=== PATIENT | female | born 1980 | race Caucasian/White ===

== ENCOUNTER 2018-03-30 15:45 | Inpatient (IN) | payer MEDICAID, OTHER ==
[~2018-03-30] VITALS: Ht 160 cm; Wt 70.4 kg
[2018-03-30 15:54] VITALS: BP 138/76; PULSE 72; RESP 18; TEMP 99.2; O2SAT 100
--- NOTE | 2018-03-30 16:24 | PD ---
HPI Chief Complaint: Psychiatric Symptoms Time Seen by Provider: 15:59 Travel History International Travel<30 days: No Contact w/Intl Traveler<30days: No Traveled to known affect area: No History of Present Illness HPI 37-year-old female that presents to the ED for evaluation of Tania robles. Patient was Tania acted secondary to having bizarre behavior and behavioral issues. Patient apparently is suicidal. Per patient she is taking lithium for her bipolar disorder and believes that is the cause of the symptoms. She denies any chest pain or shortness of breath. Other medical issues. Per patient she has a history of hypertension but was secondary to medication she was taking. Per patient she follows closely with a psychiatrist who has been following her for a while and has been changing the medications multiple times with minimal success of symptoms improvement. Patient was Tania acted for her own safety. She denies any homicidal ideation but she states that she would like to try "marijuana". She denies any urinary or bowel movement issues. Symptoms appear to be ongoing for some time. No other medical issues at this time. Denies any alcohol abuse. PFSH Past Medical History ?: Not Past Surgical History Hysterectomy: No Social History Alcohol Use: No Tobacco Use: No Substance Use: No Allergies-Medications (Allergen,Severity, Reaction): Coded Allergies: quetiapine (Verified Allergy, Severe, HYPERTENSION/TACHYCARDIA, 03/30/18) Latex, Natural Rubber (Verified Allergy, Intermediate, ITCH, 03/30/18) Sulfa (Sulfonamide Antibiotics) (Verified Allergy, Intermediate, HIVES, 03/30/18) alprazolam (Verified Allergy, Intermediate, RASH, 03/30/18) guaifenesin (Verified Allergy, Intermediate, RASH, 03/30/18) lithium (Verified Allergy, Intermediate, BEHAVIORAL CHANGES, 03/30/18) Review of Systems Except as stated in HPI: all other systems reviewed are Neg Physical Exam Narrative GENERAL: SKIN: Warm and dry. HEAD: Atraumatic. Normocephalic. EYES: Pupils equal and round. No scleral icterus. No injection or drainage. ENT: No nasal bleeding or discharge. Mucous membranes pink and moist. Tongue is midline. No uvula deviation. NECK: Trachea midline. No JVD. CARDIOVASCULAR: Regular rate and rhythm. No murmurs, S3, S4. RESPIRATORY: No accessory muscle use. Clear to auscultation. Breath sounds equal bilaterally. GASTROINTESTINAL: Abdomen soft, non-tender, nondistended. Hepatic and splenic margins not palpable. MUSCULOSKELETAL: Extremities without clubbing, cyanosis, or edema. No obvious deformities. Full range of motion of the upper and lower extremities bilaterally. 2+ pulses bilaterally. NEUROLOGICAL: Awake and alert. No obvious cranial nerve deficits. Motor grossly within normal limits. Five out of 5 muscle strength in the arms and legs. Normal speech. PSYCHIATRIC: Appropriate mood and affect; insight and judgment normal. Data Data Last Documented VS Vital Signs Date Time Temp Pulse Resp B/P (MAP) Pulse Ox O2 Delivery O2 Flow Rate FiO2 03/30/18 15:54 99.2 72 18 138/76 (96) 100 Orders Orders Complete Blood Count With Diff (03/30/18 15:59) Comprehensive Metabolic Panel (03/30/18 15:59) Thyroid Stimulating Hormone (03/30/18 15:59) Psych Screen (03/30/18 15:59) Drug Screen, Random Urine (03/30/18 15:59) Alcohol (Ethanol) (03/30/18 15:59) Salicylates (Aspirin) (03/30/18 15:59) Tylenol (Acetaminophen) (03/30/18 15:59) [place] (Li) (03/30/18 16:06) MDM Medical Decision Making Medical Screen Exam Complete: Yes Emergency Medical Condition: Yes Medical Record Reviewed: Yes Differential Diagnosis Depression versus suicidal ideation versus anxiety versus adjustment disorder versus mood disorder versus bipolar disorder versus schizophrenia versus paranoid disorder versus psychosis versus substance abuse versus alcohol abuse versus alcohol induced psychosis versus homicidality addition versus cutting versus personality disorder Narrative Course 37-year-old female that presents to the ED for evaluation of psychiatric illness. No significant medical distress. Labs were drawn. Patient was medically clear. Okay to be seen by psych. Mental health screening was discussed with the patient. Diagnosis Primary Impression: Bipolar 1 disorder Palomo Gauthier March 30, 2018 16:24
[2018-03-30 17:34] LABS: ALBUMIN 4.8 GM/DL (3.4-5.0); AST (GOT) 15 U/L (15-37); BICARBONATE 25.7 MEQ/L (21.0-32.0); BLOOD UREA NITROGEN 8 MG/DL (7-18); CALCIUM 10.2 MG/DL (8.5-10.1); CHLORIDE 104 MEQ/L (98-107); CREATININE 1.08 MG/DL (0.50-1.00); GLOMERULAR FILTRATION RATE 57 ML/MIN (>89); GLUCOSE,RANDOM 83 MG/DL (74-106); SODIUM (NA) 142 MEQ/L (136-145)
[2018-03-30 17:46] LABS: ALKALINE PHOSPHATASE 97 U/L (45-117); ALT (GPT) 22 U/L (10-53); TOTAL BILIRUBIN ADULT 0.6 MG/DL (0.2-1.0); TOTAL PROTEIN 8.7 GM/DL (6.4-8.2)
[2018-03-30 17:50] LABS: ACETAMINOPHEN LESS THAN 2.0 MCG/ML (10.0-30.0)
[2018-03-30 18:05] VITALS: BP 148/77; PULSE 78; RESP 18; O2SAT 100
[2018-03-30] MEDS ORDERED: DIAZ10 PO (18:27)
[2018-03-30] MEDS ORDERED: LAMO200T PO (18:38)
[2018-03-30] MEDS ORDERED: DIAZEPAM 10 MG TAB PO ONE (18:45)
[2018-03-30 19:13] LABS: AUTOMATED NEUTROPHIL # 7.1 TH/MM3 (1.8-7.7); BASOPHIL # 0.1 TH/MM3 (0-0.2); BASOPHIL % 1.1 % (0.0-2.0); EOSINOPHIL # 0.1 TH/MM3 (0-0.4); HEMATOCRIT 40.4 % (35.0-46.0); HEMOGLOBIN 13.6 GM/DL (11.6-15.3); LYMPH % 27.6 % (9.0-44.0); LYMPHOCYTE # 3.1 TH/MM3 (1.0-4.8); MEAN CELL VOLUME 87.5 FL (80.0-100.0); MEAN CORPUSCULAR HEMOGLOBIN 29.4 PG (27.0-34.0); MEAN CORPUSCULAR HGB CONC 33.6 % (32.0-36.0); MEAN PLATELET VOLUME 8.2 FL (7.0-11.0); MONOCYTE # 0.7 TH/MM3 (0-0.9); NEUT % 64.3 % (16.0-70.0); PLATELET COUNT 276 TH/MM3 (150-450); RED BLOOD COUNT 4.62 MIL/MM3 (4.00-5.30); RED CELL DISTRIBUTION WIDTH 12.9 % (11.6-17.2); WHITE BLOOD COUNT 11.1 TH/MM3 (4.0-11.0)
[2018-03-30 19:17] LABS: BILIRUBIN, URINE NEG (NEG); BLOOD, URINE SMALL (NEG); GLUCOSE,URINE NEG (NEG); KETONE, URINE NEG (NEG); NITRITE,URINE NEG (NEG); PH, URINE 6.5 (5.0-8.5); SQUAMOUS EPITHELIAL CELL URINE 6 /hpf (0-5); URINE COLOR LIGHT-YELLOW (YELLW/STRAW); URINE LEUKOCYTE ESTERASE NEG (NEG)
[2018-03-30 22:11] VITALS: BP 120/74; PULSE 97; RESP 18; TEMP 98.7; O2SAT 99
[2018-03-30] MEDS ORDERED: lamoTRIgine 100 MG TAB PO ONE (23:15)
[2018-03-31 02:14] VITALS: BP 111/69; PULSE 108; RESP 18; TEMP 98.7; O2SAT 98
[2018-03-31 06:25] VITALS: BP 125/69; PULSE 84; RESP 16; TEMP 98.3; O2SAT 98
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
[2018-03-31] MEDS: lamoTRIgine 100 MG TAB PO SCH ×2 (09:15→21:43)
[2018-03-31] MEDS ORDERED: MAGNESIUM HYDROXIDE SUSP 30 ML CUP PO PRN (09:15)
[2018-03-31] MEDS ORDERED: ALUMINUM/MAGNESIUM/SIMETH 30 ML CUP PO PRN (09:15)
[2018-03-31] MEDS ORDERED: NICOTINE 21 MG/24 HR PATCH T-DERMAL PRN (09:15)
[2018-03-31] MEDS: PARoxetine HCL 20 MG TAB PO SCH (09:47)
[2018-03-31 11:22] VITALS: BP 124/74; PULSE 85; RESP 16; TEMP 98.5; O2SAT 100
[2018-03-31] MEDS: DIAZEPAM 5 MG TAB PO PRN ×2 (11:59→20:04)
--- NOTE | 2018-03-31 14:20 | PD.PSY.CON ---
Provisional Diagnosis Admission Date March 31, 2018 at 09:05 [place]. 1. Bipolar disorder, presently depressed, severe without psychotic features [place] II. 1. Cluster B personality traits History of Present Illness Service Psychiatry Consult Requested By Psychiatry Reason for Consult Second opinion Primary Care Physician Unknown HPI Ms. Sandoval is a 37-year-old female with a reported history of bipolar disorder and anxiety who presents under a [place] act by her outpatient nurse practitioner Nirmala Espino alleging suicidal ideation. Reviewing our electronic medical record, it appears this is patient's first visit to [place]. Patient seen and examined in the J-[facility]. Chart reviewed. Case discussed with nursing staff. On my examination today, the patient complains of low mood, poor appetite, poor sleep and poor concentration for several weeks. She reports onset about 3-4 days prior to presentation of suicidal ideation with plan to hang herself and overdose. She did not make any acts in furtherance of this plan. She does not report any urge to hurt herself on the inpatient unit. She complains of intermittent irritability, more prominent before her menses. She complains of anxiety, often panicky, with associated agoraphobia. I can elicit no hypomanic or manic symptoms presently. She denies AVH and I can elicit no delusional material. Cluster B personality traits noted. Remainder of the psychiatric ROS is negative. No acute physical complaints. Patient is insisting on discharge from the emergency room this morning saying that she has to get home to take care of her children. Patient is a 37 years old woman, domiciled with her and 2 kids , unemployed, with self-reported psychiatric history of bipolar disorder, anxiety, depression, no previous psychiatric hospitalizations, no previous suicidal attempts, she is in Lamictal 200 mg twice daily, lutein 150 mg a.m. and 300 p.m, first time seeing in [place], medical history hypothyroidism, who was brought the ER on the [place] act initiated by her outpatient practitioner due to suicidal ideation. Patient was consulted to me for second opinion. The patient is found very distress, profusely crying, but at the same time with very labile affect and behaviorally dysregulated. She reports that she has been having suicidal ideation "because the lithium is not working to me, this lithium is making me suicidal". Patient states that she does not want to kill herself because she has 2 kids, but she wants to be stabilized. She denies visual and auditory hallucinations, she denies suicidal enemas ideation. The patient is oriented 3. She seems to be a little bit disorganized at times, but with redirection she can cooperate. Review of Systems Constitutional: DENIES: Diaphoretic episodes, Fatigue, Fever, Weight gain, Weight loss, Chills, Dizziness, Change in appetite, Night Sweats Endocrine: DENIES: Abnorml menstrual pattern, Heat/cold intolerance, Polydipsia , Polyuria, Polyphagia Eyes: DENIES: Blurred vision, Diplopia, Eye inflammation, Eye pain, Vision loss , Photosensitivity, Double Vision Ears, nose, mouth, throat: DENIES: Tinnitus, Hearing loss, Vertigo, Nasal discharge, Oral lesions, Throat pain, Hoarseness, Ear Pain, Running Nose, Epistaxis, Sinus Pain, Toothache, Odynophagia Respiratory: DENIES: Apneas, Cough, Snoring, Wheezing, Hemoptysis, Sputum production, Shortness of breath Cardiovascular: DENIES: Chest pain, Palpitations, Syncope, Dyspnea on Exertion , PND, Lower Extremity Edema, Orthopnea, Claudication Gastrointestinal: DENIES: Abdominal pain, Black stools, Bloody stools, Constipation, Diarrhea, Nausea, Vomiting, Difficulty Swallowing, Anorexia Genitourinary: DENIES: Abnormal vaginal bleeding, Dysmenorrhea, Dyspareunia, Sexual dysfunction, Urinary frequency, Urinary incontinence, Urgency, Hematuria , Dysuria, Nocturia, Vaginal discharge Musculoskeletal: DENIES: Joint pain, Muscle aches, Stiffness, Joint Swelling, Back pain, Neck pain Integumentary: DENIES: Abnormal pigmentation, Pruritus, Rash, Nail changes, Breast masses, Breast skin changes, Nipple discharge Hematologic/lymphatic: DENIES: Bruising, Lymphadenopathy Immunologic/allergic: DENIES: Eczema, Urticaria Neurologic: DENIES: Abnormal gait, Headache, Localized weakness, Paresthesias, Seizures, Speech Problems, Tremor, Poor Balance Psychiatric: COMPLAINS OF: Suicidal Ideation, DENIES: Anxiety, Confusion, Mood changes, Depression, Hallucinations, Agitation, Homicidal Ideation, Delusions Past Family Social History Coded Allergies: quetiapine (Verified Allergy, Severe, HYPERTENSION/TACHYCARDIA, 03/30/18) Latex, Natural Rubber (Verified Allergy, Intermediate, ITCH, 03/30/18) Sulfa (Sulfonamide Antibiotics) (Verified Allergy, Intermediate, HIVES, 03/30/18) alprazolam (Verified Allergy, Intermediate, RASH, 03/30/18) guaifenesin (Verified Allergy, Intermediate, RASH, 03/30/18) lithium (Verified Allergy, Intermediate, BEHAVIORAL CHANGES, 03/30/18) Reported Medications Lamotrigine (Lamotrigine) 200 Mg Tab, 200 MG PO BID for Control Seizures, #60 TAB 0 Refills 03/30/18 Diazepam (Valium) 10 Mg Tab, 10 MG PO BID Y for ANXIETY, TAB 0 Refills 03/30/18 Current Medications Medications (Trade) Dose Ordered Sig/[place] Route Start Time Stop Time Status Last Admin (LaMICtal) 200 mg BID PO 03/31/18 09:15 03/31/18 09:15 (Benadryl) 50 mg HS PRN PO 03/31/18 21:00 (Tylenol) 650 mg Q4H PRN PO 03/31/18 09:15 (Milk Of Magnesia Liq) 30 ml DAILY PRN PO 03/31/18 09:15 (Mag-Al Plus Susp Liq) 30 ml Q6H PRN PO 03/31/18 09:15 (Habitrol 21 Mg Patch.24 Hr) 1 patch DAILY PRN T-DERMAL 03/31/18 09:15 (Valium) 5 mg Q6H PRN PO 03/31/18 10:00 03/31/18 11:59 (Paxil) 20 mg DAILY PO 03/31/18 09:15 03/31/18 09:47 (Synthroid) 25 mcg DAILY@0600 PO 04/01/18 06:00 Family Psych History She reports that her father had a schizophrenia Social History Patient was born and raised in [place], she lives in [place] with her and 2 kids, she is unemployed, her highest level of education is ninth grade Patient's Strengths (min. 2) Family support, outpatient psychiatric Physical Exam Vital Signs Vital Signs Date Time Temp Pulse Resp B/P (MAP) Pulse Ox O2 Delivery O2 Flow Rate FiO2 03/31/18 11:22 98.5 85 16 124/74 (91) 100 03/31/18 06:25 Room Air Lab Results Test 03/30/18 16:10 03/30/18 16:20 03/30/18 18:45 Urine Color LIGHT-YELLOW Urine Turbidity CLEAR Urine pH 6.5 Urine Specific [place] 1.011 Urine Protein NEG mg/dL Urine Glucose (UA) NEG mg/dL Urine Ketones NEG mg/dL Urine Occult Blood SMALL Urine Nitrite NEG Urine Bilirubin NEG Urine Urobilinogen LESS THAN 2.0 MG/DL Urine Leukocyte Esterase NEG Urine RBC 1 /hpf Urine WBC LESS THAN 1 /hpf Urine Squamous Epithelial Cells 6 /hpf Microscopic Urinalysis Comment CULT NOT INDICATED Urine Opiates Screen NEG Urine Barbiturates Screen NEG Urine Amphetamines Screen NEG Urine Benzodiazepines Screen NEG Urine Cocaine Screen NEG Urine Cannabinoids Screen NEG Blood Urea Nitrogen 8 MG/DL Creatinine 1.08 MG/DL Random Glucose 83 MG/DL Total Protein 8.7 GM/DL Albumin 4.8 GM/DL Calcium Level 10.2 MG/DL Alkaline Phosphatase 97 U/L Aspartate Amino Transf (AST/SGOT) 15 U/L Alanine Aminotransferase (ALT/SGPT) 22 U/L Total Bilirubin 0.6 MG/DL Sodium Level 142 MEQ/L Potassium Level 3.7 MEQ/L Chloride Level 104 MEQ/L Carbon Dioxide Level 25.7 MEQ/L Anion Gap 12 MEQ/L Estimat Glomerular Filtration Rate 57 ML/MIN Thyroid Stimulating Hormone 3rd Gen 2.770 uIU/ML Salicylates Level LESS THAN 1.7 MG/DL Acetaminophen Level LESS THAN 2.0 MCG/ML [place] Level 0.2 MEQ/L Ethyl Alcohol Level LESS THAN 3 MG/DL White Blood Count 11.1 TH/MM3 Red Blood Count 4.62 MIL/MM3 Hemoglobin 13.6 GM/DL Hematocrit 40.4 % Mean Corpuscular Volume 87.5 FL Mean Corpuscular Hemoglobin 29.4 PG Mean Corpuscular Hemoglobin Concent 33.6 % Red Cell Distribution Width 12.9 % Platelet Count 276 TH/MM3 Mean Platelet Volume 8.2 FL Neutrophils (%) (Auto) 64.3 % Lymphocytes (%) (Auto) 27.6 % Monocytes (%) (Auto) 6.0 % Eosinophils (%) (Auto) 1.0 % Basophils (%) (Auto) 1.1 % Neutrophils # (Auto) 7.1 TH/MM3 Lymphocytes # (Auto) 3.1 TH/MM3 Monocytes # (Auto) 0.7 TH/MM3 Eosinophils # (Auto) 0.1 TH/MM3 Basophils # (Auto) 0.1 TH/MM3 CBC Comment DIFF FINAL Differential Comment Mental Status Examination Appearance: Disheveled Consciousness: Alert Orientation: x4 Motor Activity: Normal gait Speech: Rapid Language: Adequate Fund of Knowledge: Adequate Attention and Concentration: Adequate Memory: Unremarkable Mood: Irritable, Manic Affect: Irritable Thought Process & Associations: Loose associations, Disorganized Thought Content: Appropriate Hallucination Type: None Delusion Type: None Suicidal Ideation: Yes Suicidal Plan: Yes Suicidal Intention: No Homicidal Ideation: No Homicidal Plan: No Homicidal Intention: No Insight: Poor Judgment: Poor Assessment & Plan Problem List: (1) Bipolar 1 disorder ICD Codes: F31.9 - Bipolar disorder, unspecified Status: Acute Assessment & Plan: I have seen and examined personally this patient. Review documentation. I have discussed this case personally with Dr. Daniel and ER staff. I agree and concur with Dr. Daniel assessment and plan. Consult appreciated. Assessment & Plan Estimated LOS: Braxton Rob MD March 31, 2018 14:20
[2018-03-31] MEDS: ACETAMINOPHEN 325 MG TAB PO PRN (20:12)
[2018-03-31] MEDS: diphenhydrAMINE HCL 50 MG CAP PO PRN (21:44)
[2018-04-01] MEDS: LEVOTHYROXINE SODIUM 25 MCG TAB PO SCH (05:35)
[2018-04-01 05:46] VITALS: BP 122/67; PULSE 99; RESP 16; TEMP 98.2; O2SAT 99
[2018-04-01 07:37] LABS: AUTOMATED NEUTROPHIL # 3.1 TH/MM3 (1.8-7.7); BASOPHIL # 0.1 TH/MM3 (0-0.2); BASOPHIL % 1.2 % (0.0-2.0); EOSINOPHIL # 0.2 TH/MM3 (0-0.4); EOSINOPHIL % 2.8 % (0.0-4.0); HEMATOCRIT 37.3 % (35.0-46.0); HEMOGLOBIN 12.7 GM/DL (11.6-15.3); LYMPHOCYTE # 2.3 TH/MM3 (1.0-4.8); MEAN CELL VOLUME 86.8 FL (80.0-100.0); MEAN CORPUSCULAR HEMOGLOBIN 29.6 PG (27.0-34.0); MEAN CORPUSCULAR HGB CONC 34.1 % (32.0-36.0); MEAN PLATELET VOLUME 7.9 FL (7.0-11.0); MONO % 7.3 % (0.0-8.0); MONOCYTE # 0.4 TH/MM3 (0-0.9); NEUT % 50.7 % (16.0-70.0); PLATELET COUNT 280 TH/MM3 (150-450); RED BLOOD COUNT 4.29 MIL/MM3 (4.00-5.30); RED CELL DISTRIBUTION WIDTH 13.1 % (11.6-17.2); WHITE BLOOD COUNT 6.1 TH/MM3 (4.0-11.0)
[2018-04-01 08:09] LABS: BICARBONATE 28.9 MEQ/L (21.0-32.0); BLOOD UREA NITROGEN 15 MG/DL (7-18); CALCIUM 9.3 MG/DL (8.5-10.1); CHLORIDE 105 MEQ/L (98-107); CHOLESTEROL 170 MG/DL (120-200); CHOLESTEROL/ HDL RATIO 3.04 RATIO; CREATININE 1.07 MG/DL (0.50-1.00); GLOMERULAR FILTRATION RATE 58 ML/MIN (>89); GLUCOSE,RANDOM 91 MG/DL (74-106); HDL CHOLESTEROL 55.8 MG/DL (40.0-60.0); LDL CHOLESTEROL 98 MG/DL (0-99); SODIUM (NA) 141 MEQ/L (136-145); TRIGLYCERIDES 83 MG/DL (42-150)
--- NOTE | 2018-04-01 08:13 | HHI.PYPN ---
Subjective Chief Complaint: Depression, SI Remarks Patient seen and adams with nurse Vyas, chart reviewed, patient complaint medications, patient discussed with nurse. Patient is somewhat intense intrusive with somewhat rapid pressured speech. She is very well continues suicidality, seems to acknowledge some stressful situations at home. She focused somewhat on the fact that she feels her Valium dose that she takes at home is half of what it should be. Though her urine toxicology drawn yesterday came back with a negative findings including benzodiazepines. We will continue her at the lower dose. It appears the petition supporting the [place] act has been misplaced I will redo the first opinion petition supporting [place] act. I do believe she meets criteria at this time. Otherwise continue treatment Review of Systems Except as stated in HPI: all other systems reviewed are Neg Mental Status Examination Appearance: Disheveled Consciousness: Alert Orientation: x4 Motor Activity: Normal gait Speech: Unremarkable Language: Adequate Fund of Knowledge: Adequate Attention and Concentration: Adequate Memory: Unremarkable (Grossly intact on clinical exam) Mood: Other (Depressed) Affect: Other (Restricted) Thought Process & Associations: Intact Thought Content: Appropriate Hallucination Type: None Delusion Type: None Suicidal Ideation: Yes Suicidal Plan: Yes Suicidal Intention: No (No reported urge to hurt self on an inpatient unit) Homicidal Ideation: No Homicidal Plan: No Homicidal Intention: No Insight: Poor Judgment: Poor Results Labs Test 04/01/18 07:14 White Blood Count 6.1 TH/MM3 Red Blood Count 4.29 MIL/MM3 Hemoglobin 12.7 GM/DL Hematocrit 37.3 % Mean Corpuscular Volume 86.8 FL Mean Corpuscular Hemoglobin 29.6 PG Mean Corpuscular Hemoglobin Concent 34.1 % Red Cell Distribution Width 13.1 % Platelet Count 280 TH/MM3 Mean Platelet Volume 7.9 FL Neutrophils (%) (Auto) 50.7 % Lymphocytes (%) (Auto) 38.0 % Monocytes (%) (Auto) 7.3 % Eosinophils (%) (Auto) 2.8 % Basophils (%) (Auto) 1.2 % Neutrophils # (Auto) 3.1 TH/MM3 Lymphocytes # (Auto) 2.3 TH/MM3 Monocytes # (Auto) 0.4 TH/MM3 Eosinophils # (Auto) 0.2 TH/MM3 Basophils # (Auto) 0.1 TH/MM3 CBC Comment DIFF FINAL Differential Comment Blood Urea Nitrogen 15 MG/DL Creatinine 1.07 MG/DL Random Glucose 91 MG/DL Calcium Level 9.3 MG/DL Sodium Level 141 MEQ/L Potassium Level 4.0 MEQ/L Chloride Level 105 MEQ/L Carbon Dioxide Level 28.9 MEQ/L Anion Gap 7 MEQ/L Estimat Glomerular Filtration Rate 58 ML/MIN Triglycerides Level 83 MG/DL Cholesterol Level 170 MG/DL LDL Cholesterol 98 MG/DL HDL Cholesterol 55.8 MG/DL Cholesterol/HDL Ratio 3.04 RATIO Vitals/IOs Vital Signs Date Time Temp Pulse Resp B/P (MAP) Pulse Ox O2 Delivery O2 Flow Rate FiO2 04/01/18 05:46 98.2 99 16 122/67 (85) 99 03/31/18 06:25 Room Air Assessment & Plan Problem List: (1) Bipolar disorder, current episode depressed, severe, without psychotic features ICD Codes: F31.4 - Bipolar disorder, current episode depressed, severe, without psychotic features Assessment & Plan Estimated LOS: days patient continues with vague suicidal ideation somewhat mixed in presentation. There is some drug-seeking behaviors related to her dose of benzodiazepine. I will do first opinion petition supporting [place] act and request second opinion Justification for Cont. Inpt. At this time patient would decompensate a place to a lower level of care Discharge Planning Probable return home with family Request HC Surrog/Guard Advoc?: No Daniel Gill MD April 01, 2018 08:13
[2018-04-01] MEDS: lamoTRIgine 100 MG TAB PO SCH ×2 (09:03→21:20)
[2018-04-01] MEDS: PARoxetine HCL 20 MG TAB PO SCH (09:04)
[2018-04-01 16:32] VITALS: BP 137/65; PULSE 80; RESP 17; TEMP 97.4; O2SAT 98
[2018-04-01 16:49] LABS: HEMOGLOBIN A1C 4.5 % (4.3-6.0)
[2018-04-01] MEDS: diphenhydrAMINE HCL 50 MG CAP PO PRN (21:21)
[2018-04-01] MEDS: ACETAMINOPHEN 325 MG TAB PO PRN (22:04)
[2018-04-02] MEDS: LEVOTHYROXINE SODIUM 25 MCG TAB PO SCH (05:37)
[2018-04-02 06:07] VITALS: BP 123/63; PULSE 96; RESP 16; TEMP 98.6; O2SAT 98
[2018-04-02] MEDS: lamoTRIgine 100 MG TAB PO SCH ×2 (09:29→21:14)
[2018-04-02] MEDS: PARoxetine HCL 20 MG TAB PO SCH (09:29)
[2018-04-02] MEDS: ACETAMINOPHEN 325 MG TAB PO PRN ×2 (09:31→19:22)
--- NOTE | 2018-04-02 11:23 | HHI.PYPN ---
Subjective Chief Complaint: Depression, SI Remarks Patient was seen and case discussed with nursing. Patient has been visiting with her . She notices her mood improving. She is anxious during the interview. Says she does not like people. Somewhat guarded. Sleep is variable. She denies suicidal or homicidal ideation intent or plan. Compliant with medications Mental Status Examination Appearance: Disheveled Consciousness: Alert Orientation: x4 Motor Activity: Normal gait Speech: Unremarkable Language: Adequate Fund of Knowledge: Adequate Attention and Concentration: Adequate Memory: Unremarkable (Grossly intact on clinical exam) Mood: Other (Depressed) Affect: Other (Restricted) Thought Process & Associations: Intact Thought Content: Appropriate Hallucination Type: None Delusion Type: None Suicidal Ideation: Yes Suicidal Plan: Yes Suicidal Intention: No (No reported urge to hurt self on an inpatient unit) Homicidal Ideation: No Homicidal Plan: No Homicidal Intention: No Insight: Poor Judgment: Poor Results Vitals/IOs Vital Signs Date Time Temp Pulse Resp B/P (MAP) Pulse Ox O2 Delivery O2 Flow Rate FiO2 04/02/18 06:07 98.6 96 16 123/63 (83) 98 03/31/18 06:25 Room Air Intake and Output 04/02/18 04/02/18 04/03/18 08:00 16:00 00:00 Intake Total 360 ml Balance 360 ml Assessment & Plan Problem List: (1) Bipolar disorder, current episode depressed, severe, without psychotic features ICD Codes: F31.4 - Bipolar disorder, current episode depressed, severe, without psychotic features Assessment & Plan Continue current treatment plan Justification for Cont. Inpt. Patient would decompensate in a less restrictive setting Request HC Surrog/Guard Advoc?: No Caesar Galvan DO April 02, 2018 11:23
[2018-04-02] MEDS: DIAZEPAM 5 MG TAB PO PRN (13:43)
[2018-04-02 16:37] VITALS: BP 121/61; PULSE 98; RESP 18; TEMP 98.6
[2018-04-02] MEDS: diphenhydrAMINE HCL 50 MG CAP PO PRN (21:14)
[2018-04-03] MEDS: LEVOTHYROXINE SODIUM 25 MCG TAB PO SCH (06:00)
[2018-04-03 06:03] VITALS: BP 113/70; PULSE 87; RESP 16; TEMP 98; O2SAT 98
[2018-04-03] MEDS: lamoTRIgine 100 MG TAB PO SCH ×2 (08:54→21:25)
[2018-04-03] MEDS: PARoxetine HCL 20 MG TAB PO SCH (08:54)
--- NOTE | 2018-04-03 11:23 | HHI.PYPN ---
Subjective Chief Complaint: Depression, SI Remarks Patient was seen and case discussed with nursing. Patient continues to improve. She is bright and cheerful during the interview. She is looking forward to a visit today from her . Describes her mood today is "good." 10 out of 10. She looks forward to seeing her kids and when she goes home. Compliant with medications and social on the unit Mental Status Examination Appearance: Disheveled Consciousness: Alert Orientation: x4 Motor Activity: Normal gait Speech: Unremarkable Language: Adequate Fund of Knowledge: Adequate Attention and Concentration: Adequate Memory: Unremarkable (Grossly intact on clinical exam) Mood: Appropriate Affect: Appropriate Thought Process & Associations: Intact Thought Content: Appropriate Hallucination Type: None Delusion Type: None Suicidal Ideation: No Suicidal Plan: Brittani Suicidal Intention: No (No reported urge to hurt self on an inpatient unit) Homicidal Ideation: No Homicidal Plan: No Homicidal Intention: No Insight: Poor Judgment: Poor Results Vitals/IOs Vital Signs Date Time Temp Pulse Resp B/P (MAP) Pulse Ox O2 Delivery O2 Flow Rate FiO2 04/03/18 06:03 98.0 87 16 113/70 (84) 98 03/31/18 06:25 Room Air Assessment & Plan Problem List: (1) Bipolar disorder, current episode depressed, severe, without psychotic features ICD Codes: F31.4 - Bipolar disorder, current episode depressed, severe, without psychotic features Assessment & Plan Continue current treatment plan Justification for Cont. Inpt. Patient would decompensate in a less restrictive setting Request HC Surrog/Guard Advoc?: No Caesar Galvan DO April 03, 2018 11:23
[2018-04-03 17:40] VITALS: BP 119/69; PULSE 88; RESP 17; TEMP 98.1; O2SAT 98
[2018-04-03] MEDS: DIAZEPAM 5 MG TAB PO PRN (18:02)
[2018-04-03] MEDS: diphenhydrAMINE HCL 50 MG CAP PO PRN (21:26)
[2018-04-04 06:21] VITALS: BP 119/68; PULSE 70; RESP 18; TEMP 97.8; O2SAT 99
[2018-04-04] MEDS: LEVOTHYROXINE SODIUM 25 MCG TAB PO SCH (06:33)
[2018-04-04] MEDS: lamoTRIgine 100 MG TAB PO SCH (08:35)
[2018-04-04] MEDS: PARoxetine HCL 20 MG TAB PO SCH (08:35)
[2018-04-04] MEDS ORDERED: PARO20TA2 PO (09:13)
[2018-04-04] MEDS ORDERED: LAMO200T PO (09:13)
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
[2018-04-04] MEDS ORDERED: LEVO25TA4 PO (09:56)
== END 2018-04-04 11:50 | disposition home or self-care (01) | DRG 885 ==
LOC: NEPJ 15:45 → NEDA 03-31 09:05 → H260 03-31 11:00
PROVIDERS: ADMIT Psychiatry & Neurology Psychiatry; ATTEND Psychiatry & Neurology Psychiatry
DX: F31.4 Bipolar disorder, current episode depressed, severe, without psychotic features (principal); R45.851 Suicidal ideations; E03.9 Hypothyroidism, unspecified; Z76.5 Malingerer [conscious simulation]; Z88.2 Allergy status to sulfonamides; Z88.8 Allergy status to other drugs, medicaments and biological substances; Z91.040 Latex allergy status
CPT/HCPCS: 80048; 80053; 80061; 80178; 80307; 81001; 83036; 84443; 84703; 85025; 99285; Q0163